=== PATIENT | male | born 1960 | race African-American/Black ===

== ENCOUNTER 2022-11-19 12:32 | Emergency (ER) | payer MEDICAID ==
[~2022-11-19] VITALS: Ht 188 cm; Wt 95.3 kg
[2022-11-19 13:04] LABS: MEAN CORPUSCULAR VOLUME 88.1 fL (73.0-96.2); PLATELET COUNT (AUTO) 197 K/uL (152-348)
[2022-11-19 13:16] LABS: CARBON DIOXIDE 27 mmol/L (21-32); CHLORIDE 102 mmol/L (98-107); CREATININE 1.2 mg/dL (0.6-1.3); GLUCOSE 115 mg/dL (74-106); POTASSIUM 3.4 mmol/L (3.5-5.1); UREA NITROGEN, BLOOD 16 mg/dL (7-18)
[2022-11-19 13:18] LABS: NEUTROPHILS % (MANUAL) 0 % (42-75)
[2022-11-19 13:25] LABS: ALANINE AMINOTRANSFERASE 19 U/L (16-63); ALKALINE PHOSPHATASE 100 U/L (50-136); ASPARTATE AMINOTRANSFERASE 13 U/L (15-37); BILIRUBIN,DIRECT 0.2 mg/dL (0.0-0.2); BILIRUBIN,TOTAL 0.5 mg/dL (0.2-1.0); TOTAL PROTEIN, SERUM 8.3 g/dL (6.4-8.2)
[2022-11-19] MEDS ORDERED: IBUPROFEN 600 MG TABLET PO ONE (15:30)
[2022-11-19] MEDS ORDERED: IBUPROFEN 600 MG TABLET ONE (15:42)
[2022-11-19] MEDS ORDERED: ASPIRIN 81 MG TAB.CHEW ONE (15:56)
[2022-11-19] MEDS ORDERED: ASPIRIN 81 MG TAB.CHEW PO ONE (16:00)
--- NOTE | 2022-11-19 16:09 | NUR ---
Patient discharged to home in stable condition. Written and verbal after care instructions given. Patient verbalizes understanding of instructions. Stressed follow up or return to ER for worsening s/s.
--- NOTE | 2022-11-19 16:09 | NUR ---
Patient ambulate with steady gait. IV removed.
[2022-11-19 16:10] VITALS: BP 142/81
== END 2022-11-19 16:11 | disposition home or self-care (01) ==
LOC: ER 12:32
DX: R07.89 Other chest pain (principal); U07.1 COVID-19; I45.10 Unspecified right bundle-branch block; K21.9 Gastro-esophageal reflux disease without esophagitis; R03.0 Elevated blood-pressure reading, without diagnosis of hypertension; R73.03 Prediabetes
CPT/HCPCS: 36415; 70030-TC; 70450; 71045; 84484; 85025; 93005; A4663

== ENCOUNTER 2023-09-24 14:26 | Emergency (ER) | payer MEDICAID ==
[~2023-09-24] VITALS: Ht 188 cm; Wt 90.7 kg
[2023-09-24] MEDS ORDERED: KETOROLAC TROMETHAMINE 15 MG INJ ONE (15:18)
[2023-09-24] MEDS: KETOROLAC TROMETHAMINE 15 MG INJ IM ONE (15:23)
[2023-09-24] MEDS ORDERED: IBUP-1955 PO (15:50)
[2023-09-24 16:44] VITALS: BP 117/70; TEMP 97.4; O2SAT 99
== END 2023-09-24 16:45 | disposition home or self-care (01) ==
LOC: ER 14:26
DX: S46.812A Strain of other muscles, fascia and tendons at shoulder and upper arm level, left arm, initial encounter (principal); J45.909 Unspecified asthma, uncomplicated; K21.9 Gastro-esophageal reflux disease without esophagitis; Z79.899 Other long term (current) drug therapy; Z98.890 Other specified postprocedural states; Z88.2 Allergy status to sulfonamides; X58.XXXA Exposure to other specified factors, initial encounter; Y93.89 Activity, other specified; Y92.89 Other specified places as the place of occurrence of the external cause; Y99.8 Other external cause status
CPT/HCPCS: 99283; 73030; 96372; J1885; A4606; A4663

== ENCOUNTER 2023-12-19 04:51 | Emergency (ER) | payer MEDICAID ==
[~2023-12-19] VITALS: Ht 188 cm; Wt 88.5 kg
[~2023-12-19 04:51] MED LIST: IBUP-1955 PO
[2023-12-19] MEDS ORDERED: NITROGLYCERIN OINT 1 GM PACKET TP ONE (05:10)
[2023-12-19] MEDS ORDERED: ASPIRIN 81 MG TAB.CHEW ONE (05:10)
[2023-12-19 05:17] VITALS: BP 161/92
[2023-12-19] MEDS: ASPIRIN 81 MG TAB.CHEW PO ONE (05:17)
[2023-12-19] MEDS: NITROGLYCERIN OINT 1 GM PACKET TP ONE (05:17)
[2023-12-19 05:24] LABS: BASOPHILS % (AUTO) 0.8 % (0.0-2.0); EOSINOPHILS # (AUTO) 0.1 K/uL (0.0-0.7); EOSINOPHILS % (AUTO) 1.4 % (0.0-7.0); HEMATOCRIT 41.4 % (36.7-47.1); HEMOGLOBIN 14.3 g/dL (12.5-16.3); LYMPHOCYTES # (AUTO) 1.4 K/uL (0.8-4.8); LYMPHOCYTES % (AUTO) 24.9 % (20.5-51.5); MEAN CORPUSCULAR HEMOGLOBIN 30.6 uug (23.8-33.4); MEAN CORPUSCULAR HGB CONC 34 g/dL (32.5-36.3); MEAN CORPUSCULAR VOLUME 88.9 fL (73.0-96.2); MONOCYTES # (AUTO) 0.5 K/uL (0.1-1.30); MONOCYTES % (AUTO) 9.5 % (0.0-11.0); NEUTROPHILS # (AUTO) 3.5 K/uL (1.8-8.9); NEUTROPHILS % (AUTO) 63.4 % (38.5-71.5); PLATELET COUNT (AUTO) 219 K/uL (152-348); RED BLOOD CELL COUNT(AUTO) 4.66 MIL/uL (4.06-5.63); RED CELL DISTRIBUTION WIDTH 14.5 % (12.1-16.2); WHITE BLOOD COUNT (AUTO) 5.5 K/uL (3.6-10.2)
[2023-12-19 05:36] LABS: CALCIUM 9.2 mg/dL (8.5-10.1); CARBON DIOXIDE 28 mmol/L (21-32); CHLORIDE 105 mmol/L (98-107); CREATININE 1.2 mg/dL (0.6-1.3); GLUCOSE 97 mg/dL (74-106); POTASSIUM 3.7 mmol/L (3.5-5.1); SODIUM SERUM 138 mmol/L (136-145); UREA NITROGEN, BLOOD 17 mg/dL (7-18)
[2023-12-19 05:50] LABS: ALANINE AMINOTRANSFERASE 23 U/L (16-63); ALBUMIN 3.8 g/dL (3.4-5.0); ALKALINE PHOSPHATASE 79 U/L (50-136); ASPARTATE AMINOTRANSFERASE 7 U/L (15-37); BILIRUBIN,DIRECT 0.2 mg/dL (0.0-0.2); BILIRUBIN,TOTAL 0.7 mg/dL (0.2-1.0); NT-PRO BNP 22 pg/mL (0-125); TOTAL PROTEIN, SERUM 7.9 g/dL (6.4-8.2)
[2023-12-19 06:02] LABS: DIFFERENTIAL COMMENT 1
[2023-12-19 08:12] VITALS: O2SAT 99
== END 2023-12-19 08:13 | disposition home or self-care (01) ==
LOC: ER 05:04
DX: R07.89 Other chest pain (principal); J45.909 Unspecified asthma, uncomplicated; K21.9 Gastro-esophageal reflux disease without esophagitis; Z98.890 Other specified postprocedural states; Z79.899 Other long term (current) drug therapy; Z60.2 Problems related to living alone; Z88.2 Allergy status to sulfonamides
CPT/HCPCS: 36415; 71045; 84484; 85025; 93005; A4606; A4663